=== PATIENT | female | born 1970 | race Caucasian/White ===

== ENCOUNTER 2017-04-19 02:26 | Emergency (ER) | payer OTHER ==
[~2017-04-19] VITALS: Ht 154.9 cm; Wt 81.5 kg
[2017-04-19] MEDS ORDERED: METO25 PO (02:33)
[2017-04-19] MEDS ORDERED: LEVO25TA9 PO (02:33)
[2017-04-19] MEDS ORDERED: AMLO2.5T PO (02:33)
[2017-04-19] MEDS ORDERED: NEOMYCIN/POLYMYXIN B/HYDROCORT 10 ML OTIC SUSPENSION AS ONE (02:45)
[2017-04-19 02:57] VITALS: BP 142/88
== END 2017-04-19 02:59 | disposition home or self-care (01) ==
LOC: EMS 02:27
DX: S00.452A Superficial foreign body of left ear, initial encounter (principal); H73.892 Other specified disorders of tympanic membrane, left ear; I10 Essential (primary) hypertension; W45.8XXA Other foreign body or object entering through skin, initial encounter; Y93.89 Activity, other specified; Y92.89 Other specified places as the place of occurrence of the external cause; Y99.8 Other external cause status
CPT/HCPCS: 99283